=== PATIENT | male | born 1965 | race Caucasian/White ===

== ENCOUNTER 2022-01-28 02:28 | Day surgery (SDC) | payer BC, SELFPAY ==
[2022-01-18 11:11] VITALS: BMI 36.3
[2022-01-28 09:27] VITALS: BP 128/82; PULSE 80; RESP 18; TEMP 36.8; O2SAT 99; BMI 37.7
[2022-01-28] MEDS: LACTATED RINGERS 1,000 ML 150 ML IV CONT (09:39)
--- NOTE | 2022-01-28 09:55 | WPDGICN ---
Assessment and Plan Assessment and plan (1) Encounter for screening colonoscopy: Code(s): Z12.11 - Encounter for screening for malignant neoplasm of colon Status: Acute Assessment and Plan: Patient presents today for screening colonoscopy. Appears to be at average risk for colon polyps. GI Consult Note Consult date/time: 01/28/22 09:56 HPI: Jimbo Sanabria is a 56 year old male Presents for screening colonoscopy. Patient's current weight appetite and bowel movements are normal. He denies abdominal pain. He has had no bleeding. Family history is noncontributory. Last colonoscopy 12 years prior was unremarkable. Review of Systems Review of Systems: All systems reviewed & are unremarkable except as noted in HPI and below PMFSH Social History Social History Smoking status: Never smoker Alcohol intake: current Drinks per week: 15 Alcohol use details: BEER Substance use: never Substance use type: does not use Living arrangements: with family Spiritual care concerns: No Meds Home Medications and Allergies Home Medications Medication Instructions Recorded Confirmed Type cholecalciferol (vitamin D3) 25 mcg PO DAILY 01/18/22 01/28/22 History [Vitamin D3] cyanocobalamin (vitamin B-12) 1,000 mcg PO DAILY 01/18/22 01/28/22 History [Vitamin B-12] fexofenadine 180 mg PO DAILY 01/18/22 01/28/22 History yfqsfngu-njy-topqmf-vit C-hyal 1 tablet PO DAILY 01/18/22 01/28/22 History [Bmsubdjodvn-Yfbfsxlcptt-PVD] hydrochlorothiazide 12.5 mg PO QMWF 01/18/22 01/28/22 History losartan 100 mg PO DAILY 01/18/22 01/28/22 History multivitamin [Men's Multi-Vitamin] 1 tablet PO DAILY 01/18/22 01/28/22 History omega 7-awm-lrs-fish oil [Fish Oil] 1 cap PO DAILY 01/18/22 01/28/22 History omeprazole 20 mg PO DAILY 01/18/22 01/28/22 History pravastatin 40 mg PO DAILY 01/18/22 01/28/22 History verapamil 180 mg PO DAILY 01/18/22 01/28/22 History Allergies Allergy/AdvReac Type Severity Reaction Status Date / Time Sulfa (Sulfonamide Allergy Severe Rash Verified 01/28/22 09:26 Antibiotics) Vital Signs Vital Signs - 24 hr 01/28/22 09:27 Temperature 98.2 F Pulse Rate 80 Respiratory Rate 18 Blood Pressure 128/82 Pulse Oximetry 99 Exam Narrative: Physical exam reveals patient to be alert. Vital signs stable. HEENT exam is unremarkable. Patient is anicteric. Lungs are clear to auscultation and percussion. Heart is without murmur or extra sounds. Abdomen bowel sounds are present soft nontender with no organomegaly. digital external rectal exam is normal.
--- NOTE | 2022-01-28 10:02 | WPDANESEPPF ---
Anes - Initial Pre Proc Eval Procedure: Operation Date: 01/28/22 10:00 Proposed Procedures p Screening Colonoscopy - Ryan Schwartz MD Date/Time: 01/28/22 10:02 Surgeon: Ryan Schwartz MD Pre Op Diagnosis: neoplasm screening Patient Data Age: 56 Gender: M Height: 1.85 m Weight: 129.6 kg Last Vital Signs Temp 98.2 F 01/28/22 09:27 Pulse 80 01/28/22 09:27 Resp 18 01/28/22 09:27 BP 128/82 01/28/22 09:27 Pulse Ox 99 01/28/22 09:27 Allergies Allergy/AdvReac Type Severity Reaction Status Date / Time Sulfa (Sulfonamide Allergy Severe Rash Verified 01/28/22 09:26 Antibiotics) Home Medications Medication Instructions Recorded Confirmed Type cholecalciferol (vitamin D3) 25 mcg PO DAILY 01/18/22 01/28/22 History [Vitamin D3] cyanocobalamin (vitamin B-12) 1,000 mcg PO DAILY 01/18/22 01/28/22 History [Vitamin B-12] fexofenadine 180 mg PO DAILY 01/18/22 01/28/22 History oljkccbk-lok-axxbub-vit C-hyal 1 tablet PO DAILY 01/18/22 01/28/22 History [Ucmrvwelajt-Upzmxojleph-KCG] hydrochlorothiazide 12.5 mg PO QMWF 01/18/22 01/28/22 History losartan 100 mg PO DAILY 01/18/22 01/28/22 History multivitamin [Men's Multi-Vitamin] 1 tablet PO DAILY 01/18/22 01/28/22 History omega 2-lzq-mqo-fish oil [Fish Oil] 1 cap PO DAILY 01/18/22 01/28/22 History omeprazole 20 mg PO DAILY 01/18/22 01/28/22 History pravastatin 40 mg PO DAILY 01/18/22 01/28/22 History verapamil 180 mg PO DAILY 01/18/22 01/28/22 History Patient hx anesthesia problems: none Family hx anesthesia problems: none Results Review: All pre-operative results and documents have been reviewed as part of the pre-operative evaluation. PMFSH Social History Social History Smoking status: Never smoker Alcohol intake: current Drinks per week: 15 Alcohol use details: BEER Substance use: never Substance use type: does not use Living arrangements: with family Spiritual care concerns: No Anes - Eval Final PreProcedure Day of Procedure 01/28/22 10:02 Patient weight: obese Heart: regular rate and rhythm Lungs: clear to auscultation Airway: Mallampati scale class III Neurological: alert and oriented Last oral intake: >/= 8 hours ASA classification: III Emergent: no Anesthetic plan: proceed Anesthesia type and monitoring: general GIVS and standard monitoring Results Review: All pre-operative results and documents have been reviewed as part of the pre-operative evaluation. Informed Consent: The patient's anesthetic plan and its attendant risks and benefits were discussed with the patient/family/POA. Questions were solicited and answers provided to the satisfaction of the patient/family/POA.
--- NOTE | 2022-01-28 10:18 | SUR.OPER ---
SAM Montano and SAM Lugo verified with Dr. Schwartz that one sigmoid colon polyp was recovered and sent
[2022-01-28 10:22] VITALS: BP 99/75; PULSE 75; RESP 20; O2SAT 97
[2022-01-28 10:32] VITALS: BP 107/69; PULSE 71; RESP 19; O2SAT 97
[2022-01-28 10:42] VITALS: BP 112/71; PULSE 61; RESP 16; O2SAT 97
== END 2022-01-28 10:55 | disposition home or self-care (01) ==
PROVIDERS: Visit Provider Internal Medicine Gastroenterology
PROC: 0DJD8ZZ Inspection of Lower Intestinal Tract, Via Natural or Artificial Opening Endoscopic (ICD-10-PCS; CPT 45378; principal; 2022-01-28 10:00)
DX: Z12.11 Encounter for screening for malignant neoplasm of colon (principal); D12.5 Benign neoplasm of sigmoid colon; K64.8 Other hemorrhoids; K57.30 Diverticulosis of large intestine without perforation or abscess without bleeding
CPT/HCPCS: 45385; 88305; J2405; J2704; J7120